=== PATIENT | female | born 1980 | race American Indian/Alaskan Native ===

== ENCOUNTER 2020-09-29 00:55 | Emergency (ER) | payer OTHER, SELFPAY ==
[2020-09-29 01:12] VITALS: BP 135/74; BP 160/120; PULSE 109; PULSE 140; RESP 16; TEMP 37; O2SAT 98; BMI 29.2
--- NOTE | 2020-09-29 01:15 | ED.ALCOHOL ---
HPI - Alcohol General Chief Complaint: ETOH/Substance Use Stated Complaint: etoh and ams Time Seen by Provider: 09/29/20 01:09 Source: patient and EMS Mode of arrival: EMS History of Present Illness HPI narrative: patient was brought by EMS from home been intoxicated no history of fall no signs of injury no history of seizures patient denies any complain,per family patient was semi responsive and eyes was up rolled with garbled speech no seizure activity on arrival patient is intoxicated with slow speech Related Data Allergies Allergy/AdvReac Type Severity Reaction Status Date / Time No Known Allergies Allergy Unverified 12/13/19 19:23 [No Known Allergies*] Review of Systems Review of Systems: patient been intoxicated limited ROS denies any headache no nausea no vomiting no abdominal pain no shortness of breath no chest pain or palpitation no fever or chills no fall PMFSH Social History Social History Patient : No Physical Exam Vital Signs: Vital Signs: Last Vital Signs Temp 98.6 F 09/29/20 01:12 Pulse 109 H 09/29/20 01:12 Resp 16 09/29/20 01:12 BP 135/74 09/29/20 01:12 Pulse Ox 98 09/29/20 01:12 Body Mass Index 29.2 Appearance: Alert. Oriented X3. No acute distress. intoxicated ETOH+ Eyes: PERRLA, No Nystagmus right eyelid inflamed with loss of eyelashes HEENT: Pharynx normal. Oral Mucosa moist atraumatic normocephalic Neck: Normal inspection. Neck supple. CVS: Normal heart rate and rhythm. Pulses normal. Respiratory: No respiratory distress. Equal air entry bilateral, no wheezing/rales/rhonchi Abdomen: Soft and nontender. Bowel sounds are present, no mass palpable, no CVA tenderness Skin: Skin warm and dry. Normal skin color. Normal skin turgor. Extremities: No lower extremity edema. No calf tenderness Neuro: Oriented X 3. No motor deficit. No sensory deficit.No cerebellar signs , cranial nerves II-XII intact MDM - Alcohol MDM Narrative Medical decision making narrative: patient intoxicated will check alcohol level basic labs no signs of injury at this time will wait till she gets sober, will get CT scan of the head although there is no signs of injury basic labs ,patient signed out to Dr. Butcher Discharge Plan Discharge Clinical Impression: Alcoholic intoxication Qualifiers: Complication of substance-induced condition: uncomplicated Qualified Code(s): F10.920 - Alcohol use, unspecified with intoxication, uncomplicated
[2020-09-29 01:29] VITALS: BP 121/61; PULSE 87; RESP 19; TEMP 36.4; O2SAT 100
[2020-09-29 01:50] LABS: Basophils Percent Auto 0.6 % (0-2); Eosinophils Absolute Auto 0.1 X10*3/uL (0.0-0.4); Eosinophils Percent Auto 0.7 % (0-4); Hematocrit 41.9 % (37-47); Hemoglobin 14.9 g/dl (12.0-16.0); Imm Gran Abs Auto 0.01 X10*3/uL (0.00-0.03); Imm Gran Pct Auto 0.1 % (0.0-0.4); Lymphocytes Absolute Auto 2.4 X10*3/uL (1.2-4.9); Lymphocytes Percent Auto 34.8 % (20-40); MANUAL DIFF FLAG NO; Mean Corpuscular HGB Conc 35.6 g/dl (31.0-35.0); Mean Corpuscular Hemoglobin 33.2 pg (27.0-33.0); Mean Corpuscular Volume 93.3 fL (80-98); Mean Platelet Volume 9.4 fL (9.4-12.3); Monocytes Absolute Auto 0.5 X10*3/uL (0.1-1.2); Monocytes Percent Auto 7.5 % (2-11); Neutrophils Absolute Auto 3.9 X10*3/uL (2.0-8.3); Neutrophils Percent Auto 56.3 % (45-73); Platelet Count 248 X10*3/uL (160-400); Red Blood Count 4.49 X10*6/uL (4.20-5.50); Red Cell Distribution Width 11.7 % (11.0-16.0)
[2020-09-29 02:03] LABS: Amphetamine Screen Urine Not Detected (Not Detect); Barbiturates, Urine Not Detected (Not Detect); Benzodiazepines Screen Urine Not Detected (Not Detect); Cannabinoid Screen Urine Not Detected (Not Detect); Cocaine Screen Urine Not Detected (Not Detect); Opiate Screen Urine Not Detected (Not Detect); Phencyclidine Screen Urine Not Detected (Not Detect)
[2020-09-29 02:10] LABS: Ethanol 381 mg/dL
[2020-09-29 02:14] LABS: Alanine Aminotransferase 13 U/L (0-31); Albumin Level 4.6 g/dL (3.5-5.0); Alkaline Phosphatase 72 U/L (39-117); Anion Gap 15 (12-20); Aspartate Amino Transferase 17 U/L (5-31); Bilirubin Total 0.3 mg/dL (0.0-1.0); Blood Urea Nitrogen 5 mg/dL (9-16); Calcium 9.3 mg/dL (8.4-10.2); Carbon Dioxide 22 mmol/L (22-29); Chloride 108 mmol/L (96-108); Creatinine Clr Calc Pharmacy 96.3; Estimated Glomerular Filt Rate > 60; Glucose Random 111 mg/dL (60-115); Magnesium 2.3 mg/dL (1.6-2.6); Potassium 3.1 mmol/L (3.3-5.1); Sodium 142 mmol/L (135-145); Total Protein 7.5 g/dL (6.5-8.0)
--- NOTE | 2020-09-29 03:03 | PC.NURSE ---
Pt repeatedly making attempts to get off of stretcher. Pt with unsteady gait, unable to stand upright independently without swaying. For pt's safety, this RN encourages pt to return to stretcher. Pt returned to stretcher. Pt continues to attempt to get off of stretcher, demands her personal cellphone to contact her significant other, Darion. This rn explains to pt that she [place] [facility] [place], but that this RN can provide [facility] [place] for her use. This rn informs pt that she can make phone call, but afterwards will need to remain safely on stretcher until she is safe to move about independently. Pt expresses understanding. This rn encourages pt to use callbell to contact staff for any needs, including transfer to bedside commode. Pt expresses understanding and agrees to plan. Pt provided with hospital phone, calls Darion and Darion disconnects call. Pt states she was unable to make phone call. This RN, Rene embedded firmware developer, Dr Butcher explain to pt that she had already placed call, pt denies this. Dr Butcher informs pt that pt is to remain safe by lying on stretcher. Pt expresses understanding and agrees. Pt exits stretcher once again. This RN, Rene embedded firmware developer, Skyla RN attempt to encourage pt to return to stretcher but she refuses, stating I'm not that drunk and I want to leave. Security to bedside. [employer] contacted. [employer] arrives, attempts to encourage pt to behave appropriately in ED, but pt refuses. [employer] placed pt in handcuffs and assisted pt to ambulate out of dept safely.
== END 2020-09-29 02:55 ==
PROVIDERS: Emergency Provider Internal Medicine
DX: F10.129 Alcohol abuse with intoxication, unspecified (principal)
CPT/HCPCS: 36415; 80053; 80307; 82077; 83735; 85025; 99283; 99285

== ENCOUNTER 2024-04-02 10:44 | Outpatient (AMB) | payer OTHER, SELFPAY ==
[2024-04-02 12:03] VITALS: BP 110/72; PULSE 60; TEMP 36.6; O2SAT 99
--- NOTE | 2024-04-02 12:03 | AM.OFFWIN_ITS ---
Intake Vital Signs 04/02/24 12:03 Weight 171 lb BP 110/72 Blood Pressure Location Rt brachial Position Sitting Pulse 60 Pulse Source Pulse Oximeter Temp 97.8 F Temp Source Oral Pulse Oximetry (%) 99 Oxygen Delivery Method Room Air Intake Visit Reasons: EP ? UTI Intake Note: Patient here for itching, frequent urination that started tuesday. Patient Tobacco Use Status: Current everyday Tobacco user Allergies No Known Allergies [No Known Allergies*] Allergy (Unverified 04/02/24 14:02) Medication List - Last Reconciled 04/02/24 by Mary Mckinnon PA-C fluconazole 150 mg PO Q3D 2 doses metronidazole 500 mg PO BID 7 days Do you need a note to return to daycare/school/sports/work: Yes HPI HPI Comments 2 History of Present Illness Details The patient is a 43-year-old female presenting with urinary urgency and pruritus. She reports feeling an urgent need to urinate since Tuesday, with episodes occurring frequently through the night, disturbing her sleep. This urgency is accompanied by the passage of small amounts of clear urine. Initially suspecting a urinary tract infection due to frequent past experiences, she notes feeling particularly disturbed by her symptoms over the past few nights, which led to her decision to seek urgent care. On this morning, the patient also began experiencing vaginal pruritus and significant discharge, which she describes as thin and lacking an odor. She denies any recent use of antibiotics but indicates a propensity for yeast infections following antibiotic treatment. Approximately two infections occurred within a month in her recent history. She mentions being treated for UTIs in the past, noting that the initial antibiotic courses were ineffective, requiring adjustments. She cannot recall the exact timing of these episodes but confirms that it was more than nine months ago. The patient denies any current fevers, nausea, vomiting, abdominal pain, or back pain, though she does mention mild suprapubic discomfort upon urination. [facility] Social History Alcohol intake: current Alcohol intake frequency: 3 or more drinks per day Patient Tobacco Use Status: Current everyday Tobacco user Review of Systems Const Details: - Genitourinary: Reports urgency, frequent urination, and significant vaginal discharge. Denies pain during urination, fever, back pain, and gastrointestinal symptoms. All systems reviewed & are unremarkable except as noted in HPI and below Physical Exam Vital Signs: Last Vital Signs Temp 97.8 F 04/02/24 12:03 Pulse 60 04/02/24 12:03 BP 110/72 04/02/24 12:03 Pulse Ox 99 04/02/24 12:03 Oxygen Delivery Method Room Air 04/02/24 12:03 Const Other: Appearance: Alert. Oriented X3. No acute distress. ? Head: Normal external exam. Normocephalic. Atraumatic.? Eyes: PERRLA. EOMI. Conjunctiva and sclera normal. Eyelids normal. ? ENT: Pharynx normal. Uvula midline. Moist mucous membranes. ? Neck: Normal inspection. Neck supple. FROM. No meningeal signs. CVS: Normal heart rate and rhythm. Respiratory: No respiratory distress. Painless inspiration. Abdomen: Soft and nontender. No distention noted.? No organomegaly noted.? No visible injury noted. Back: ?No CVA tenderness.? Full range of motion noted. Skin: Skin warm and dry.? Normal skin color.? Normal skin turgor. No rashes/lesions/lacerations noted. Extremities: Extremities exhibit normal range of motion.? Extremities nontender. Neuro: Oriented X 3.? No motor deficit.? No sensory deficit.? Reflexes normal. Assessment & Plan Assessment & Plan (1) Vaginitis: Code(s): N76.0 - Acute vaginitis Plan: Patient with hx of bacterial vaginitis and yeast infection.Will swab for BV and yeast. denies thoughts of STI's. Not c/w uti, PID. Will d/c wIth flagyl and diflucan. Will call with positive results. UA was negative for UTI. pt understands and agrees with plan. Plan tx for BV and yeast. Pending swab. Medications: New metronidazole 500 mg PO BID 7 days 14 tabs 0RF fluconazole 150 mg PO Q3D 2 tabs 0RF Coding Level of Care Code Est Pt Level 3 (17821) Diagnoses Vaginitis N76.0
== END 2024-04-02 12:32 | disposition home or self-care (01) ==
PROVIDERS: Visit Provider Physician Assistant Medical
DX: N76.0 Acute vaginitis (principal)

== ENCOUNTER 2024-04-02 10:44 | Outpatient (REF) | payer OTHER, SELFPAY ==
[2024-04-02 18:14] LABS: Bacterial Vaginosis PCR POSITIVE (Negative); Candida Group PCR NOT DETECTED (Not Detect); Candida glab krusei PCR NOT DETECTED (Not Detect); Trichomonas vaginalis PCR NOT DETECTED (Not Detect)
== END 2024-04-02 10:45 | disposition home or self-care (01) ==
LOC: HO.LAB 10:44
PROVIDERS: Visit Provider Physician Assistant Medical
DX: N76.0 Acute vaginitis (principal)
CPT/HCPCS: 81515